=== PATIENT | female | born 1970 | race Hispanic/Latino ===

== ENCOUNTER 2018-11-10 03:17 | Emergency (ER) | payer SELFPAY ==
[2018-11-10] MEDS ORDERED: LIDOCAINE HCL 2% JELLY 5 ML ONE (03:45)
[2018-11-10] MEDS ORDERED: NEOMYCIN/POLYMYXIN/HC OTIC SUSP 10ML BOTTLE ONE ×2 (03:45→03:56)
[2018-11-10] MEDS ORDERED: ACETAMINOPHEN EXTRA STRENGTH 500 MG TABLET ONE ×2 (03:46→03:56)
[2018-11-10] MEDS ORDERED: AMOXICILLIN/POTASSIUM CLAV 875-125 TABLET PO ONE ×2 (03:46→03:56)
== END 2018-11-10 03:41 | disposition home or self-care (01) ==
LOC: EDH 03:17
DX: H60.91 Unspecified otitis externa, right ear (principal); Z90.49 Acquired absence of other specified parts of digestive tract; Z90.710 Acquired absence of both cervix and uterus